=== PATIENT | male | born 1945 | race Caucasian/White ===

== ENCOUNTER 2021-11-24 17:34 | Emergency (ER) | payer MEDICARE, OTHER ==
[~2021-11-24] VITALS: Ht 175.3 cm; Wt 108.9 kg
--- NOTE | ~2021-11-24 | EKG ---
[facility] [address] [place], [place] [address] Draft EK completed, results pending confirmation PATIENT NAME: GUEVARA ORONA Electrocardiogram DATE OF : 47 PHYSICIAN: PRELIMINARY REPORT #: [id number] REPORT IS CONFIDENTIAL AND NOT TO BE RELEASED WITHOUT AUTHORIZATION
[2021-11-24] MEDS ORDERED: COZAAR50 MG PO (18:28)
--- NOTE | 2021-11-26 15:32 | EKG ---
[facility] [address] [facility] [place] [address] Signed Sinus rhythm with 1st degree AV block Low voltage QRS Borderline ECG When compared with ECG of 24-NOV-2021 18:15, (Unconfirmed) aberrant conduction is no longer present Confirmed by LYDIA MCGUIRE MD ([id number]) on 11/26/2021 3:32:37 PM Electronically Signed By: LYDIA MCGUIRE MD 11/26/21 1532 PATIENT NAME: GUEVARA ORONA WERNER Electrocardiogram DATE OF : 47 PHYSICIAN: LYDIA MCGUIRE MD REPORT #: [id number] REPORT IS CONFIDENTIAL AND NOT TO BE RELEASED WITHOUT AUTHORIZATION
== END 2021-11-24 19:30 | disposition short-term general hospital (02) ==
LOC: ED 17:34
DX: I63.9 Cerebral infarction, unspecified (principal); Z79.899 Other long term (current) drug therapy; Z20.822 Contact with and (suspected) exposure to COVID-19
CPT/HCPCS: 70450; 70496; 70498; 71045; 80053; 85025; 85610; 85730; 87502; 93005; 93010; 99285-25; C9803; J2405; J3101; Q9967; U0003